=== PATIENT | male | born 1975 | race Hispanic/Latino ===

== ENCOUNTER 2018-05-13 03:40 | Emergency (ER) | payer OTHER ==
[2018-05-13] MEDS ORDERED: KETOROLAC TROMETHAMINE 60 MG/2 ML VIAL ONE (04:20)
== END 2018-05-13 04:35 | disposition home or self-care (01) ==
LOC: EDH 03:40
DX: R51 Headache (principal); M62.838 Other muscle spasm; Z98.890 Other specified postprocedural states; Z72.0 Tobacco use
CPT/HCPCS: 96372; 99283; J1885